=== PATIENT | male | born 1995 | race Two or more races ===

== ENCOUNTER 2024-05-23 12:52 | Emergency (ER) | payer OTHER ==
[2024-05-23 13:23] VITALS: BP 158/82; PULSE 80; RESP 16; TEMP 97.6; BMI 37.5
[2024-05-23] MEDS ORDERED: CYCLOBENZAPRINE HCL 5 MG TABLET ONE (13:23)
[2024-05-23] MEDS: IBUPROFEN 600 MG TABLET (FP) PO ONE (13:26)
[2024-05-23] MEDS: CYCLOBENZAPRINE HCL 5 MG TABLET PO ONE (13:26)
== END 2024-05-23 13:49 | disposition home or self-care (01) ==
LOC: JERFT 12:52
DX: M54.6 Pain in thoracic spine (principal); M54.2 Cervicalgia; V59.50XA Passenger in pick-up truck or van injured in collision with unspecified motor vehicles in traffic accident, initial encounter
CPT/HCPCS: 99283-25